=== PATIENT | female | born 2000 | race Caucasian/White ===

== ENCOUNTER 2019-10-05 04:10 | Emergency (ER) | payer OTHER ==
[~2019-10-05] VITALS: Ht 154.9 cm; Wt 40.8 kg
[2019-10-05 04:17] VITALS: BP 81/46
--- NOTE | 2019-10-05 04:24 | NUR ---
PT AMBULATED TO ER BED 11
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
--- NOTE | 2019-10-05 04:43 | NUR ---
ERMD AT BEDSIDE
[2019-10-05] MEDS ORDERED: KETOROLAC 60 MG/2 ML VIAL IM ONE (04:45)
--- NOTE | 2019-10-05 04:46 | NUR ---
PT UNABLE TO PROVIDE URINE SAMPLE AT THIS TIME
[2019-10-05 04:58] VITALS: BP 81/46
--- NOTE | 2019-10-05 04:58 | NUR ---
Patient discharged with v/s stable. Written and verbal after care instructions given and explained. Patient alert, oriented and verbalized understanding of instructions. Ambulatory with steady gait. All questions addressed prior to discharge. ID band removed. Patient advised to follow up with PMD. Rx of NORCO, MOTRIN given. Patient educated on indication of medication including possible reaction and side effects. Opportunity to ask questions provided and answered.
== END 2019-10-05 04:58 | disposition home or self-care (01) ==
LOC: MED 04:10
DX: M54.9 Dorsalgia, unspecified (principal); Z98.890 Other specified postprocedural states
CPT/HCPCS: 99283